=== PATIENT | female | born 1990 | race Caucasian/White ===

== ENCOUNTER 2018-09-01 01:42 | Outpatient (CLI) | payer BC ==
[~2018-09-01] VITALS: Ht 162.6 cm; Wt 88.2 kg
--- NOTE | 2018-09-01 01:50 | NUR ---
Ambulatory to unit for labor assessment, accompanied by significant other. Pt on hands and knees on floor with significant other pressing on lower back when nurse enters room. Onto bed for monitoring Oriented to room, monitor, plan of care. pt tense with contractions.
[2018-09-01 02:21] VITALS: BP 116/72; PULSE 87; TEMP 97.5
[2018-09-01] MEDS ORDERED: LEXAPRO 5MG5 MG PO (02:41)
[2018-09-01] MEDS ORDERED: PRENATAL MVI (02:42)
--- NOTE | 2018-09-01 03:05 | NUR ---
SVE /-3 ballotable. Pt visibly uncomfortable and not coping very well with contractions. Discussed plan of care and that active labor requires a change in cervix. Pt desires to stay for and additional hour labor check.
--- NOTE | 2018-09-01 04:10 | NUR ---
SVE unchanged from previous exam / ballotable, no bloody show on exam glove. Discussed plan of care and home remedies pt may try for pain management during early labor. After talking with boyfriend and catering service manager, pt ok and comfortable with going home at this point.
--- NOTE | 2018-09-01 04:20 | NUR ---
Monitors removed for discharge. Return precautions reviewed with patient. Recommended warm bath at home and taking Tylenol PM to get some rest. Pt verbalized understanding. 0453 - Pt seen ambulating off unit with brandy and sander.
[2018-09-02] MEDS ORDERED: IBU600 MG PO (08:58)
[2018-09-02] MEDS ORDERED: PERCOCET 325 MG1 TA2 PO (08:58)
== END 2018-09-01 04:53 | disposition home or self-care (01) ==
LOC: LDRO 01:42 → LDR 01:50 → LDRO 04:53
DX: O62.9 Abnormality of forces of labor, unspecified (principal); Z3A.39 39 weeks gestation of pregnancy
CPT/HCPCS: OP

== ENCOUNTER 2018-09-01 09:25 | Inpatient (IN) | payer BC ==
[2018-09-01] VITALS (32 sets, daily range): BP systolic 86–143; BP diastolic 47–100; PULSE 66–131; TEMP 97.5
[~2018-09-01] VITALS: Ht 162.7 cm; Wt 88.2 kg
[~2018-09-01 09:25] MED LIST: LEXAPRO 5MG5 MG PO; PRENATAL MVI
--- NOTE | 2018-09-01 09:30 | NUR ---
Patient ambulatory to LR4 with significant other, changed into gown, FHR/TOCO monitors placed and explained. Patient states that the contractions started to get bad around 1145 last night and she came into the hospital and was sent home. Patient denies any leaking of fluid, but has been having bloody show and has continued to contract. SVE-5-6/70/-2 with bloody show. Patient requesting epidural. Dr. Buckley at nurses station and notified orders to admit patient and can have epidural. 0947: Suresh SPENCER called and notified. Plan of care discussed. 0950: IV started per Carlos Alberto FLORES in left hand, blood drawn and sent to lab, LR infusing.
--- NOTE | 2018-09-01 10:00 | NUR ---
0941- Late deceleration noted with contraction with FHT's down to 80bpn with moderate variability and spontaneous return to baseline over 70 seconds. 0949- Late deceleration noted with contraction with spontaneous return to baseline, fht's down to 80bpm over 50 seconds. 0952- late deceleratin with FHT's donw to 65 bpm with moderate varibaility, patient turned to left lateral position. with intermittent tracing over 80 seconds.
[2018-09-01 10:02] LABS: HEMATOCRIT 41.8 % (37.0-47.0); MEAN CELL VOLUME 85 fl (80.0-100.0); MEAN CORPUSCULAR HEMOGLOBIN 31 pg (27.0-31.0); MEAN CORPUSCULAR HGB CONC 36 g/dl (33.0-37.0); MEAN PLATELET VOLUME 10.2 fl (7.4-10.4); PLATELET COUNT 212 K/mm3 (130-400); RED BLOOD COUNT 4.92 M/mm3 (4.10-5.30); REDCELL DISTRIBUTION WIDTH-CV 12.7 % (11.5-14.5)
--- NOTE | 2018-09-01 10:15 | NUR ---
Intermittent tracing of FHT's, Patient up to edge of bed for placement of epidural. 1010- Jorge Rivera CRNA in room for placement. Patient breathing heavily through contractions. Patient reports feeling need to push, SVE completed, noted as documented patient tolerated well. Patient up to sitting position. notified of patient status. 1018- Single dose given at this time. 1020- Patient laid down into wedge left, positioned. Will continue to monitor. FHT's tracing.
--- NOTE | 2018-09-01 10:30 | NUR ---
Completion of epidural. intermittent tracing of FHT's patient adjusted accordingly, fluid bolus, 1033- Dr. Buckley notified of patient status, with epidural and FHT's, nurse remains at patient bedside.
[2018-09-01 10:33] LABS: BAND 2 % (0-10); LYMPHOCYTE 10 % (20.0-51.0); NEUTROPHILS 88 % (42.0-75.2)
--- NOTE | 2018-09-01 10:45 | NUR ---
Intermittent tracing of FHT's nurser remains at bedside adjusting monitor as appropriate. Fluid bolus continues.
--- NOTE | 2018-09-01 11:00 | NUR ---
Intermittent tracing of FHT's, monitor adjusted as needed. at bedside, reviews FHR strip, and conitnues to monitor patient at bedside, nurse remains in room, patient turned as indicated for FHR tracing and late declerations noted with FHR down to 90 bpm over 170 seconds with spontaneous return to baseline. remains at patient bedside.
--- NOTE | 2018-09-01 11:15 | NUR ---
remains at patient bedside. Intermittent tracing of FHT's. 1106-1 dose ephiderine given for blood pressure. nurse remains at patient bedside. 1114- Scalap electrode placed by . Late deceleration noted with palcement with FHR down to 70bpm over 60 seconds with spontaneous return to baseline. remains at patient bedside monitor.
--- NOTE | 2018-09-01 12:00 | NUR ---
1152- FHR down to 85 bpm over 60 seconds with spontaneous return to baseline. reviews FHR strip from labor desk. Continuing to monitor. 1155- Placement of rosales by nurse, patient tolerated well. LR #3 hung at this time. Patient resting comfortably in bed. Will continue to monitor.
--- NOTE | 2018-09-01 12:15 | NUR ---
1213- FHR down to 90bpm over 80 seconds with moderate variability and spontaenous return to baseline. patient lying in wedge left postion, with right leg in stirrup. Patient tolerating well.
--- NOTE | 2018-09-01 12:17 | NUR ---
Jorge Rae CRNA into room for dosing of epdiural.
--- NOTE | 2018-09-01 12:30 | NUR ---
1219- FHR down to 90 bpm over 90 seconds with moderate variability and spontaenous return to baseline. 1223- FHR with variable noted down to 90 bpm over 50 seconds with spontaneous return to baseline. reviews FHR strip. Will continue to [facility].
--- NOTE | 2018-09-01 12:45 | NUR ---
Patient noted complete with check, Variables noted in FHR strip, per instructed to begin pushing. Nurse at bedside to push with patient.
--- NOTE | 2018-09-01 13:00 | NUR ---
Per instructions of , nurse begins to push with patient during contractions. Patient unable to feel pressure of contractions and ineffective pushing noted. Discussed start of Pitocin, Per started pitocin per protocol, and patient sitting in high upright postion. Will continue to monitorl
--- NOTE | 2018-09-01 13:15 | NUR ---
PAtient sitting in high upright position, tolerating well. Patient does note more pressue noted in this postion. Pitocin increased per protocol. Intermittent variables noted down to 90 bpm. again reviews FHR strip.
--- NOTE | 2018-09-01 13:30 | NUR ---
Intermittent varibables noted, as instructed continuing to monitor per who reviews FHR strip.
--- NOTE | 2018-09-01 14:00 | NUR ---
at patient bedside, for assesment of pushing and FHR strip. performs SVE and notes swelling and anterior lip noted to 12 o'clock of cervix. dicusses with patient plan of care and possibility of c-seciton. Nurse at bedside, will continue to monitor.
--- NOTE | 2018-09-01 14:20 | NUR ---
Per plan of care discussed by with patient, continuing to increase pitocin, for patien to complete dilation and note anterior lip to recede. Patient agreeable to plan of care. Nurse continues to increase pitocin per protocol. Intermittnet varibales noted. WIll continue to monitor.
--- NOTE | 2018-09-01 14:45 | NUR ---
at patient bedside, no change, plan for c-seciton, Charge notified, Jorge Rivera WOOD MILLER notified, die cast technician notified. 1440- Pitocin stopped. Patient shaved, and prepped for OR. Spouse at patient bedside. Will continue to monitor.
--- NOTE | 2018-09-01 15:00 | NUR ---
Patient prepped for OR, epdiural dose per anesthesia. 1500- Patient taken to OR for c-seciton.
--- NOTE | 2018-09-01 18:30 | NUR ---
Report recieved. Rangel catheter emptied by alexandru Ware R.N. at this time. BP noted to be 99/48. [employer] bandage clean, dry and intact. Updated whiteboard and reviewed POC. Encouraged to drink water and attempt to eat. Denied questions or concerns.
[2018-09-02 00:30] VITALS: BP 123/66; PULSE 79; TEMP 98.3
[2018-09-02 04:39] VITALS: BP 125/77; PULSE 85; TEMP 97.3
[2018-09-02 07:25] VITALS: BP 112/62; PULSE 104; TEMP 97.7
[2018-09-02 08:41] LABS: MEAN CELL VOLUME 89 fl (80.0-100.0); MEAN CORPUSCULAR HEMOGLOBIN 31 pg (27.0-31.0); MEAN CORPUSCULAR HGB CONC 35 g/dl (33.0-37.0); PLATELET COUNT 174 K/mm3 (130-400); RED BLOOD COUNT 4.14 M/mm3 (4.10-5.30); REDCELL DISTRIBUTION WIDTH-CV 13.3 % (11.5-14.5)
[2018-09-02 08:44] LABS: HEMOGLOBIN 12.8 g/dl (12.5-16.0)
[2018-09-02] MEDS ORDERED: IBU600 MG PO (08:58)
[2018-09-02] MEDS ORDERED: PERCOCET 325 MG1 TA2 PO (08:58)
--- NOTE | 2018-09-02 09:02 | NUR ---
Initial visit; Parents thanked for offering congratulations for the of their son and for thanking them for choosing [facility].
[2018-09-02 10:00] LABS: BAND 12 % (0-10); LYMPHOCYTE 12 % (20.0-51.0); NEUTROPHILS 75 % (42.0-75.2); PLATELET ESTIMATE NORMAL (NORMAL)
[2018-09-02 16:50] VITALS: BP 127/65; PULSE 86; TEMP 98
[2018-09-02 20:40] VITALS: BP 107/63; PULSE 90; TEMP 97.9
[2018-09-03 09:45] VITALS: BP 126/75; PULSE 91; TEMP 97.8
[2018-09-03 16:15] VITALS: BP 119/73; PULSE 92; TEMP 97.8
[2018-09-03 21:00] VITALS: BP 119/75; PULSE 86; TEMP 98.3
[2018-09-04 09:20] VITALS: BP 127/80; PULSE 81; TEMP 98.1
== END 2018-09-04 15:15 | disposition home or self-care (01) | DRG 788 ==
LOC: LDRO 09:25 → LDR 09:46 → OB 16:30
PROVIDERS: ADMIT Obstetrics & Gynecology
PROC: 10D00Z1 Extraction of Products of Conception, Low, Open Approach (ICD-10-PCS; principal; 2018-09-01)
DX: O62.1 Secondary uterine inertia (principal); Z3A.40 40 weeks gestation of pregnancy; Z37.0 Single live birth; O76 Abnormality in fetal heart rate and rhythm complicating labor and delivery; O99.344 Other mental disorders complicating childbirth; F41.8 Other specified anxiety disorders; O77.0 Labor and delivery complicated by meconium in amniotic fluid; O69.81X0 Labor and delivery complicated by cord around neck, without compression, not applicable or unspecified
CPT/HCPCS: J0690; J1885; J2175; J2250; J2370; J2405; J2590; J2795; J7120